=== PATIENT | female | born 1960 | race African-American/Black ===

== ENCOUNTER 2017-08-07 13:53 | Outpatient (CLI) | payer MEDICARE, OTHER | END 2017-08-07 23:59 | disposition home or self-care (01) | LOC: RAD 13:53 | DX: M51.36 Other intervertebral disc degeneration, lumbar region (principal) | CPT/HCPCS: 72100-TC ==

== ENCOUNTER 2017-10-20 19:55 | Inpatient (IN) | payer MEDICARE, OTHER ==
[~2017-10-20] VITALS: Ht 167.6 cm; Wt 68.6 kg
[2017-10-20] MEDS ORDERED: diphenhydrAMINE HCL 50 MG/ML VIAL IV ONE (21:30)
[2017-10-20] MEDS ORDERED: IV NS 0.9% 250 ML BAG IV ONE (21:30)
[2017-10-20] MEDS ORDERED: METOCLOPRAMIDE HCL 10 MG/2 ML VIAL IV ONE (21:30)
[2017-10-20] MEDS ORDERED: IV NS 0.9% 1,000 ML BAG IV ONE (21:30)
[2017-10-20 21:41] LABS: CALCIUM, SERUM 9.1 mg/dL (8.5-10.1); CREATININE 0.7 mg/dL (0.6-1.3); POTASSIUM 3.7 mmol/L (3.5-5.1)
[2017-10-20] MEDS ORDERED: METOCLOPRAMIDE HCL 10 MG/2 ML VIAL ONE ×2 (21:49→21:52)
[2017-10-20] MEDS ORDERED: diphenhydrAMINE HCL 50 MG/ML VIAL ONE (21:49)
[2017-10-20] MEDS ORDERED: CT SWABBABLE VALVE TRANS SET 1 EA INFUS.SET MC ONE (21:49)
[2017-10-20] MEDS ORDERED: IV NS 0.9% 250 ML IV ONE (21:49)
[2017-10-20] MEDS ORDERED: IOHEXOL-350 100 ML VIAL IV ONE (21:49)
[2017-10-20 21:55] LABS: INR 0.95 (0.85-1.15)
[2017-10-20 22:02] LABS: BASOPHILS % (AUTO) 0.9 % (0.0-2.0); EOSINOPHILS % (AUTO) 3.6 % (0.0-6.0); HEMATOCRIT 41 % (33-45); HEMOGLOBIN 13.4 g/dL (11.5-14.8); LYMPHOCYTES # (AUTO) 2.2 /CMM (0.8-4.8); LYMPHOCYTES % (AUTO) 39.6 % (20.0-44.0); MEAN CORPUSCULAR HEMOGLOBIN 32 PG (26.0-33.0); MEAN CORPUSCULAR HGB CONC 33 g/dl (31.0-36.0); MEAN CORPUSCULAR VOLUME 98 fL (82-100); MONOCYTES # (AUTO) 0.4 /CMM (0.1-1.30); MONOCYTES % (AUTO) 7.7 % (2.0-12.0); NEUTROPHILS # (AUTO) 2.7 /CMM (1.8-8.9); NEUTROPHILS % (AUTO) 48.2 % (43.0-81.0); PLATELET COUNT (AUTO) 202 /CMM (150-450); RDW COEFFICIENT OF VARIATION 12.6 (11.5-15.0); RED BLOOD CELL COUNT(AUTO) 4.16 MIL/uL (4.0-5.2); WHITE BLOOD COUNT (AUTO) 5.7 K/uL (4.3-11.0)
[2017-10-21] MEDS ORDERED: ZOLPIDEM TARTRATE 5 MG TABLET PO PRN
[2017-10-21] MEDS ORDERED: ACETAMINOPHEN 325 MG TABLET PO PRN
[2017-10-21] MEDS ORDERED: MAGNESIUM HYDROXIDE 30 ML UDC PO PRN
[2017-10-21] MEDS ORDERED: HYDROCODONE/APAP 5/325MG 1 EACH TABLET PO PRN
[2017-10-21] MEDS ORDERED: MAG HYDROX/AL HYDROX/SIMETH 30 ML UDC PO PRN
[2017-10-21] MEDS ORDERED: Z GUARD REMEDY 2 OZ OINT TP PRN
[2017-10-21] MEDS ORDERED: ONDANSETRON HCL/PF 4 MG/2 ML VIAL IVP PRN
[2017-10-21 00:20] VITALS: BP 98/64
[2017-10-21 01:02] LABS: THYROID STIMULATING HORMONE 1.234 uIU/mL (0.358-3.74)
[2017-10-21] MEDS: BLOOD SUGAR DIAGNOSTIC 1 EACH STRIP IN SCH ×3 (02:39→12:47)
[2017-10-21 07:00] LABS: ALBUMIN 3.1 g/dL (3.4-5.0); BILIRUBIN,TOTAL 0.2 mg/dL (0.2-1.0); CALCIUM, SERUM 8.1 mg/dL (8.5-10.1); CREATININE 0.6 mg/dL (0.6-1.3); PHOSPHORUS 3.9 mg/dL (2.5-4.9); POTASSIUM 4.2 mmol/L (3.5-5.1)
[2017-10-21] MEDS ORDERED: BLOOD SUGAR DIAGNOSTIC 1 EACH STRIP IN SCH (07:30)
[2017-10-21 08:00] VITALS: BP 76/42
[2017-10-21] MEDS ORDERED: IV NS 0.9% 1,000 ML BAG IV PRN (09:00)
[2017-10-21] MEDS ORDERED: OMEG100037 PO (09:27)
[2017-10-21] MEDS ORDERED: IV NS 0.9% 1,000 ML IV PRN (09:30)
[2017-10-21] MEDS ORDERED: CHOL100040 PO (09:38)
[2017-10-21 10:28] VITALS: BP 85/61
[2017-10-21 11:30] VITALS: BP 97/61
== END 2017-10-21 16:15 | disposition home or self-care (01) | DRG 103 ==
LOC: ER 19:55 → TELE 23:17
PROVIDERS: ADMIT Family Medicine; ATTEND Family Medicine
DX: F07.81 Postconcussional syndrome (principal); E44.1 Mild protein-calorie malnutrition; G82.20 Paraplegia, unspecified; R51 Headache; R91.8 Other nonspecific abnormal finding of lung field; E78.00 Pure hypercholesterolemia, unspecified; W18.30XA Fall on same level, unspecified, initial encounter; Y92.89 Other specified places as the place of occurrence of the external cause
CPT/HCPCS: 36415; 70496-TC; 70498-TC; 71045-TC; 80048-TC; 80053-TC; 80061-TC; 82962-TC; 83735-TC; 83880; 84100-TC; 84443-TC; 84484-TC; 85025-TC; 85652-TC; 85730-TC; 92611-TC; 97530-TC; A4606; J1200; J2765; J7030; J7050; Q9967; Z7610

== ENCOUNTER 2018-04-13 14:47 | Emergency (ER) | payer MEDICARE, OTHER ==
[~2018-04-13] VITALS: Ht 167.6 cm; Wt 68.5 kg
[~2018-04-13 14:47] MED LIST: CHOL100040 PO; OMEG100037 PO
[2018-04-13 15:29] VITALS: BP 138/66
== END 2018-04-13 19:08 | disposition home or self-care (01) ==
LOC: ER 14:47
DX: M54.12 Radiculopathy, cervical region (principal); Z90.710 Acquired absence of both cervix and uterus
CPT/HCPCS: 70450; 72125; 99284; A4606